=== PATIENT | male | born 1945 | race Caucasian/White ===

== ENCOUNTER → 2016-09-11 | Day surgery (SDC) | payer MEDICARE ==
[~2016-09-11] MED LIST: ACETAMINOPHEN/HYDROcodone 325 MG/5 MG TAB ONE; BUPIVACAINE/EPINEPHRINE 0.5% PF 30 ML VIAL ONE; CALC600T25; CHOL100025 CHEW; KETOROLAC TROMETHAMINE 30 MG/ML (IVP) VIAL IV PUSH ONE; LACTATED RINGER'S 1000 ML INJ 1,000 ML ONE; MIDAZOLAM HCL 2 MG/2 ML VIAL ONE; MULT1TAB85 PO; ONDANSETRON HCL 4 MG/2 ML VIAL IV PUSH ONE; PANT20 PO; PROPOFOL 200 MG/20 ML AMP IV ONE; ZYRT10CA PO; ceFAZolin INJ 1,000 MG VIAL ONE
--- NOTE | 2016-09-11 12:00 | TN ---
cc: PALAK MARIO M.D. DATE OF SURGERY 09/11/2016 PREOPERATIVE DIAGNOSES 1. Ventral hernia. 2. Symptomatic cholelithiasis, cholecystitis. POSTOPERATIVE DIAGNOSES 1. Ventral hernia. 2. Symptomatic cholelithiasis, cholecystitis. PROCEDURE 1. Laparoscopic cholecystectomy. 2. Repair of small ventral hernia. ANESTHESIA General. SURGEON Dr. Mario SUPERVISOR ENROBING Maryanne Chester, advanced registered nurse practitioner. The INJECTION PRESS OPERATOR was present from beginning to the end of the case assisting in all portions of the procedure. It was necessary to have this individual in the room to assist in the above surgical procedure. The surgical procedure was assisted by the INJECTION PRESS OPERATOR. The INJECTION PRESS OPERATOR presence was necessary throughout the case for appropriate retraction, dissection, visualization, and resection of the important anatomical structures during the surgical procedure. The INJECTION PRESS OPERATOR was assisting throughout the entirety of the operation. The skill set of the INJECTION PRESS OPERATOR is medically and surgically necessary to safely complete the surgical procedure. During the surgical case the operating room ophthalmic tech was working instrument table and passing instruments to the attending surgeon and INJECTION PRESS OPERATOR The INJECTION PRESS OPERATOR was directly assisting the operating surgeon and involved in the technical aspects of the surgical case. INDICATIONS A pleasant 71-year-old gentleman who had symptoms consistent with biliary colic. Ultrasound showed gallstones. He also had a small ventral hernia that was seen on imaging on the CT scan. PROCEDURE The patient was taken to the operating room, placed supine. After anesthesia his abdomen is prepped with Betadine. Time-out is done. We make an incision above the umbilicus from a previous incision where he had a laparoscopic prostatectomy. The abdomen was entered. He has a ventral hernia that is above this defect about 5 cm. A 5-mm trocar is then placed at the subxiphoid area and a 5-mm in between the two previously placed ports. Gallbladder can be seen. It is a floppy and has signs of chronic inflammation. We are able to grasp it superior and laterally, identify cystic duct, cystic artery both of which are doubly ligated and transected. The gallbladder is then teased off the gallbladder bed, placed in the EndoCatch and pulled out through the umbilical incision, passed off the field. We then were able to palpate the ventral hernia that is just over 5-mm. The hernia sac is identified about 5 cm above the supraumbilical incision that I made. We dissect circumferentially around the hernia sac. This is able to be reproduced completely. We then just reapproximate this 5-mm defect with 0 Ethibond interrupted suture. The supraumbilical port site is then closed at the fascial layer with an interrupted 0 Vicryl. The skin is then closed with a 4-0 Vicryl at all three sites. The patient tolerated the procedure well, had no immediate postop complication. Palak Mario MD JDB/SSB /11:47 AM /11:53 AM [email or web address]
== END | disposition home or self-care (01) ==
LOC: ESDC 09:04
PROVIDERS: ATTEND Surgery
DX: K80.10 Calculus of gallbladder with chronic cholecystitis without obstruction (principal); K43.9 Ventral hernia without obstruction or gangrene
CPT/HCPCS: 00790; 47562; 88304; J0690; J1885; J2250; J2405; J3010; J7120

== ENCOUNTER 2017-05-22 11:18 | Emergency (ER) | payer OTHER, MEDICARE ==
[~2017-05-22 11:18] MED LIST changes: -ACETAMINOPHEN/HYDROcodone 325 MG/5 MG TAB ONE; -BUPIVACAINE/EPINEPHRINE 0.5% PF 30 ML VIAL ONE; -CALC600T25; +CALC600T5; -KETOROLAC TROMETHAMINE 30 MG/ML (IVP) VIAL IV PUSH ONE; -LACTATED RINGER'S 1000 ML INJ 1,000 ML ONE; -MIDAZOLAM HCL 2 MG/2 ML VIAL ONE; -ONDANSETRON HCL 4 MG/2 ML VIAL IV PUSH ONE; -PROPOFOL 200 MG/20 ML AMP IV ONE; -ceFAZolin INJ 1,000 MG VIAL ONE
[2017-05-22 11:24] VITALS: BP 161/75; PULSE 55; RESP 20; TEMP 98.3; O2SAT 97
[2017-05-22] MEDS ORDERED: OMEG100010 (11:27)
[2017-05-22] MEDS ORDERED: DICL75TA PO (11:27)
[2017-05-22] MEDS ORDERED: MULTTAB67 PO (11:27)
[2017-05-22] MEDS ORDERED: TRAM50TA PO (11:53)
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
[2017-05-22] MEDS ORDERED: TETANUS/DIPHTHERIA TOXOID ADULT 0.5 ML VIAL IM ONE (12:00)
[2017-05-22] MEDS ORDERED: LIDOCAINE HCL 1% 50 ML VIAL INFIL ONE (12:00)
== END 2017-05-22 12:25 | disposition home or self-care (01) ==
LOC: PHED 11:18
DX: S61.412A Laceration without foreign body of left hand, initial encounter (principal); V89.2XXA Person injured in unspecified motor-vehicle accident, traffic, initial encounter; Z23 Encounter for immunization
CPT/HCPCS: 12001; 90471; 90714